=== PATIENT | female | born 1945 | race Caucasian/White ===

== ENCOUNTER → 2019-10-16 13:42 | Outpatient (CLI) | payer MEDICARE, SELFPAY ==
--- NOTE | ~2019-10-16 | MM_ITS ---
EXAMINATION: MM screening [facility] BI w magali HISTORY: Screening TECHNIQUE: Craniocaudal and mediolateral oblique 3-D tomosynthesis images were obtained and synthetic 2-D images were generated. CAD analysis was submitted and interpreted. COMPARISON: Comparison to multiple prior studies sequentially, with oldest reviewed study dated 01/26. BREAST PARENCHYMAL COMPOSITION: The breasts are heterogeneously dense, which may obscure small masses . FINDINGS: Bilateral breast asymmetries and calcifications are stable. There is no evidence of suspici ous mass, calcification, or architectural distortion to suggest malignancy in either breast. There galeas s been no suspicious interval change. IMPRESSION: 1. No mammographic evidence of malignancy. 2. Recommend routine screening mammography in one year. BI-RADS Category 2: Benign finding(s). Reviewed, dictated and finalized at location A.
== END ==
PROVIDERS: PCP Family Medicine; Visit Provider Family Medicine
DX: Z12.31 Encounter for screening mammogram for malignant neoplasm of breast (principal)
CPT/HCPCS: 77063; 77067

== ENCOUNTER → 2020-11-10 13:23 | Outpatient (CLI) | payer MEDICARE, SELFPAY ==
--- NOTE | ~2020-11-10 | MM_ITS ---
EXAMINATION: MM screening [facility] BI w magali HISTORY: Screening mammogram TECHNIQUE: Craniocaudal and mediolateral oblique 3-D tomosynthesis images were obtained and synthetic 2-D images were generated. CAD analysis was submitted and interpreted. COMPARISON: 10/16/2019, 07/16/2018, 06/19/2017 BREAST PARENCHYMAL COMPOSITION: There are scattered areas of fibroglandular density. FINDINGS: There is a stable subareolar cyst of the right breast. There is no evidence of suspicious m ass, calcification, or architectural distortion to suggest malignancy in either breast. There has bee n no suspicious interval change. IMPRESSION: 1. No mammographic evidence of malignancy. 2. Recommend routine screening mammography in one year. BI-RADS Category 2: Benign finding(s). Reviewed, dictated and finalized at location A.
== END ==
PROVIDERS: PCP Family Medicine; Visit Provider Family Medicine
DX: Z12.31 Encounter for screening mammogram for malignant neoplasm of breast (principal)
CPT/HCPCS: 77063; 77067

== ENCOUNTER → 2021-12-14 15:38 | Outpatient (CLI) | payer MEDICARE, SELFPAY ==
--- NOTE | ~2021-12-14 | MM_ITS ---
EXAMINATION: MM screening [facility] BI w magali HISTORY: Screening mammogram TECHNIQUE: Craniocaudal and mediolateral oblique 3-D tomosynthesis images were obtained and synthetic 2-D images were generated. CAD analysis was submitted and interpreted. COMPARISON: 11/10/2020, 10/16/2019, 07/16/2018 BREAST PARENCHYMAL COMPOSITION: There are scattered areas of fibroglandular density. FINDINGS: Again seen is a stable subareolar cyst of the right breast. There is no suspicious mass, ca lcification, or architectural distortion to suggest malignancy in either breast. There has been no anderson spicious interval change. IMPRESSION: 1. No mammographic evidence of malignancy. 2. Recommend routine screening mammography in one year. BI-RADS Category 2: Benign finding(s). Reviewed, dictated and finalized at location A.
== END ==
PROVIDERS: PCP Family Medicine; Visit Provider Family Medicine
DX: Z12.31 Encounter for screening mammogram for malignant neoplasm of breast (principal)
CPT/HCPCS: 77063; 77067

== ENCOUNTER 2022-11-21 10:44 | Emergency (ER) | payer MEDICARE, SELFPAY ==
[2022-11-21 10:54] VITALS: BP 136/65; PULSE 65; RESP 20; O2SAT 100
--- NOTE | 2022-11-21 11:08 | ED.EAR ---
HPI - Ear Problem General Chief complaint: Ear Stated complaint: Ear Pain/Jaw Pain Source: patient and RN notes reviewed History of Present Illness HPI Narrative: 77-year-old female presents to urgent care with complaints of bilateral ear fullness. Patient is also reporting a pain in her right mid jaw that feels like sandpaper rubbing at times. Patient states she has been having these symptoms for last 3-4 weeks. Denies any ear pain, fevers, chills, congestion, sore throat, dental or gum pain, chest pain, shortness of breath, or vomiting. Related Data Home Medications Medication Instructions Recorded Confirmed lisinopril 10 mg tablet mg 11/21/22 pravastatin 40 mg tablet mg 11/21/22 Allergies Allergy/AdvReac Type Severity Reaction Status Date / Time No Known Allergies Allergy Verified 11/21/22 11:00 Review of Systems Review of Systems: Pertinent positives and pertinent negatives per HPI. PMFSH Comments At the time of my signature, I reviewed and agree with the nursing past medical, surgical, social, and family history. There is no relevant family history pertinent to the patient complaint. Exam Narrative: GENERAL: This is a well-nourished, well-developed patient, in no apparent distress. HEAD: normocephalic, atraumatic. EYES: Sclera clear/white. Vision is grossly intact. EARS: External ears normal, auditory canals clear and without drainage, TMs normal without perforation. Hearing grossly intact. Minimal amount of clear fluid noted behind bialteral TMs. NOSE: External nose normal with no obvious nasal discharge, nares without redness, no rhinorrhea. THROAT: Mucous membranes moist, posterior pharynx clear. NECK: Neck supple, non-tender without lymphadenopathy, masses or thyromegaly. CARDIOVASCULAR: Regular rate and rhythm without murmurs, gallops, or rubs. RESPIRATORY: Clear to auscultation. Breath sounds equal bilaterally. No wheezes, rales, or rhonchi. GASTROINTESTINAL: Abdomen soft, non-tender, nondistended. Bowel sounds are active. No hepato-splenomegaly, or palpable masses. No guarding. SKIN: warm, intact with no suspicious lesions or rash, good texture and turgor. NEURO: awake, alert, and oriented to person, place and time. There were no obvious focal neurologic abnormalities. EXTREMITIES: No clubbing, cyanosis, or edema. No joint tenderness, effusion, or edema noted. BACK: Nontender without deformity or crepitus. No flank tenderness. Course Course Level of Care: Express Care Visit Vital Signs Vital signs: Vital Signs Pulse Rate 65 11/21/22 10:54 Respiratory Rate 20 11/21/22 10:54 Blood Pressure 136/65 11/21/22 10:54 Pulse Oximetry 100 11/21/22 10:54 Oxygen Delivery Room Air 11/21/22 10:54 Pulse Rate 65 11/21/22 10:54 Respiratory Rate 20 11/21/22 10:54 Blood Pressure 136/65 11/21/22 10:54 Pulse Oximetry 100 11/21/22 10:54 Oxygen Delivery Room Air 11/21/22 10:54 reviewed Medical Decision Making MDM Narrative Medical decision making narrative: Continue taking your allergy pill daily. Use the Flonase twice a day. If symptoms persist over 1 more week, contact ENT for follow up. Follow up with your dentist regarding your right jaw pain. Differential Diagnosis Differential Diagnosis: AOM, otitis media with effusion, cerumen impaction Vital Signs Vital Signs: Vital Signs Pulse Rate 65 11/21/22 10:54 Respiratory Rate 20 11/21/22 10:54 Blood Pressure 136/65 11/21/22 10:54 Pulse Oximetry 100 11/21/22 10:54 Oxygen Delivery Room Air 11/21/22 10:54 Pulse Rate 65 11/21/22 10:54 Respiratory Rate 20 11/21/22 10:54 Blood Pressure 136/65 11/21/22 10:54 Pulse Oximetry 100 11/21/22 10:54 Oxygen Delivery Room Air 11/21/22 10:54 Critical Care Time Critical Care Time Critical Care Time: No Discharge Plan Discharge Clinical Impression: Acute serous otitis media Qualifiers: Laterality: bilateral Recurrence
== END 2022-11-21 11:15 | disposition home or self-care (01) ==
PROVIDERS: Emergency Provider Nurse Practitioner Family; PCP Family Medicine
DX: H65.03 Acute serous otitis media, bilateral (principal); E78.00 Pure hypercholesterolemia, unspecified; I10 Essential (primary) hypertension
CPT/HCPCS: 99202; G0463